=== PATIENT | female | born 1995 | race Asian ===

== ENCOUNTER 2017-08-30 21:07 | Emergency (ER) | payer OTHER ==
[~2017-08-30] VITALS: Ht 149.9 cm; Wt 94.2 kg
[2017-08-30] MEDS ORDERED: ONDANSETRON ODT 4 MG ONE (21:26)
[2017-08-30] MEDS ORDERED: ONDANSETRON ODT 4 MG PO ONE (21:30)
[2017-08-30] MEDS ORDERED: ONDANSETRON 2MG/ML, 2ML ONE (21:39)
[2017-08-30 21:48] LABS: MEAN CORPUSCULAR HEMOGLOBIN 29.8 pg (27.0-34.8); MEAN CORPUSCULAR HGB CONC 33.7 g/dL (32.4-35.8); MEAN CORPUSCULAR VOLUME 88.6 fL (80-100); PLATELET COUNT 534 x10^3/uL (130-400); RED BLOOD COUNT 5.27 x10^6/uL (3.82-5.3); RED CELL DISTRIBUTION WIDTH 12.4 % (9.6-15.2)
[2017-08-30 22:00] LABS: ALANINE AMINOTRANSFERASE 19 U/L (12-78); ALBUMIN 4.5 g/dL (3.4-5.0); ANION GAP 11 mmol/L (5-15); CALCIUM 9.5 mg/dL (8.5-10.1); CHLORIDE 107 mmol/L (98-107); CREATININE 0.94 mg/dL (0.55-1.02)
[2017-08-30] MEDS ORDERED: SODIUM CHLORIDE 0.9% 1,000ML IVBOLUS ONE ×2 (22:00→22:30)
[2017-08-30] MEDS ORDERED: KETOROLAC 30 MG/1 ML IVPush ONE (22:00)
[2017-08-30] MEDS ORDERED: ONDANSETRON 2MG/ML, 2ML IVPush ONE (22:00)
[2017-08-30 22:01] LABS: MD YES
[2017-08-30 22:01] LABS: MICROSCOPIC INDICATED
[2017-08-30 22:02] LABS: HCG UR SG > 1.030 (1.003-1.030)
[2017-08-30 22:02] LABS: ALKALINE PHOSPHATASE 72 U/L (45-117); BILIRUBIN,TOTAL 0.3 mg/dL (0.2-1.0); TOTAL PROTEIN 9.5 g/dL (6.4-8.2)
[2017-08-30] MEDS ORDERED: KETOROLAC 30 MG/1 ML ONE (22:02)
[2017-08-30 22:03] LABS: <PLATELET ESTIMATE> ADEQUATE; <PLT MORPHOLOGY> NORMAL PLT MORPH; <RBC MORPHOLOGY> NORMAL; BAND#(MANUAL) 0.71 x10^3/uL; BANDS%(MANUAL) 3 % (0-7); LYMPH#(MANUAL) 0.95 x10^3/uL (1-6.1); LYMPHS% (MANUAL) 4 % (22-44); MONOS#(MANUAL) 0.47 x10^3/uL (0.3-2.7); MONOS% (MANUAL) 2 % (2-9); SEG#(MANUAL) 21.57 x10^3/uL (1.8-8); SEGS% (MANUAL) 91 % (42-75)
[2017-08-30 22:12] LABS: CULTURE INDICATED? NO
[2017-08-30] MEDS ORDERED: OMNIPAQUE 350 MG/ML, 100ML BOTTLE ONE (23:30)
[2017-08-31 01:26] VITALS: BP 117/76
== END 2017-08-31 01:28 | disposition home or self-care (01) ==
LOC: ED 22:55
DX: K52.9 Noninfective gastroenteritis and colitis, unspecified (principal); E86.0 Dehydration
CPT/HCPCS: 36415; 74177; 80053; 81001; 81025; 83690; 85025; 93005; 96361; 96374; 96375; 99285; J1885; J2405; J7030; Q9967